=== PATIENT | female | born 1980 | race Caucasian/White ===

== ENCOUNTER 2019-11-16 17:10 | Outpatient (CLI) | payer OTHER, SELFPAY ==
--- NOTE | ~2019-11-16 | XR_ITS ---
EXAMINATION: XR femur LT min 2V DATE: 11/16/2019 17:30 INDICATION: Left hip and upper femoral pain and loss of balance. TECHNIQUE: AP and lateral views of the left femur were obtained on overlapping proximal and distal im ages. COMPARISON: None. FINDINGS: Old healed left femoral diaphyseal fracture which is spanned by an antegrade intramedullary brianna with a pair of distal interlocking screws at the metaphysis and a proximal interlocking screw at the inter trochanteric femur. Alignment is near-anatomic. There is a second partially visualized old healed fra cture deformity at the right inferior pubic ramus. No acute fractures identified. Left hip and knee j oint spaces appear normal on nonweightbearing imaging. Soft tissues are unremarkable. No left knee trang int effusion. IMPRESSION: 1. Old healed internally fixed left femoral distal diaphyseal fracture in near-anatomic alignment. No acute osseous abnormality. 2. Partially visualized old healed right inferior pubic ramus fracture deformity. Reviewed, dictated and finalized at location A. IMPRESSION: 1. Old healed internally fixed left femoral distal diaphyseal fracture in near- anatomic alignment. No acute osseous abnormality. 2. Partially visualized old healed right inferior pubic ramus fracture vanessa stoner
== END 2019-11-16 17:11 | disposition home or self-care (01) ==
PROVIDERS: PCP Internal Medicine; Visit Provider Internal Medicine
DX: M79.605 Pain in left leg (principal)
CPT/HCPCS: 73552

== ENCOUNTER 2019-12-18 20:14 | Emergency (ER) | payer OTHER, SELFPAY ==
--- NOTE | ~2019-12-18 | CT_ITS ---
EXAMINATION: CT abdomen pelvis w con DATE: 12/18/2019 22:12 INDICATION: Left upper quadrant abdominal pain. TECHNIQUE: Computed tomography (CT) of the abdomen and pelvis was performed with 100 mL Omnipaque 350 intravenous contrast. Automated exposure control and iterative reconstruction technique were employe d. The dose-length product was 350.51 mGy-cm. COMPARISON: None. FINDINGS: The visualized portions of the lung bases are clear without pneumonia or pleural effusion. The heart size is normal. No pericardial effusion. The liver is normal. There are changes of cholecys tectomy. The spleen, pancreas, adrenal glands, and kidneys are normal. There are no dilated loops of bowel. The appendix is not visualized. There are no pathologically enlarged lymph nodes. There is a s mall umbilical hernia containing fat. There is no free intraperitoneal fluid. There are old healed fr actures of right superior and inferior pubic rami. There is internal fixation of proximal left femur. IMPRESSION: 1. Small umbilical hernia containing fat. Reviewed, dictated and finalized at location A.
--- NOTE | ~2019-12-18 | XR_ITS ---
EXAMINATION: XR chest 1V portable DATE: 12/18/2019 22:13 INDICATION: Abdominal pain. TECHNIQUE: A single frontal view of the chest was obtained. COMPARISON: CT abdomen and pelvis 12/18/2019 FINDINGS: There is mild atelectasis in left lower lung zone. No pleural effusion or pneumothorax. The heart size is normal. Surgical clips in the right upper quadrant are likely from cholecystectomy. IMPRESSION: 1. Mild atelectasis in left lower lung zone. Reviewed, dictated and finalized at location A.
[2019-12-18 20:20] VITALS: BP 115/72; PULSE 96; RESP 14; TEMP 36.9; O2SAT 100
--- NOTE | 2019-12-18 20:57 | ED.ABDPAIN ---
HPI - Abdominal Pain General Chief Complaint: Abdominal Pain Stated Complaint: L abd pain Source: patient Mode of arrival: ambulatory Limitations: no limitations History of Present Illness HPI narrative: 39-year-old female complains of epigastric and left-sided abdominal pain, onset 7 days ago. Pain has been getting worse today. It is sharp and intense, lasting for a few seconds, recurs every few minutes. Brought on and made worse by walking; eating does not affect it. She has had loose but formed stools without blood or mucus. She denies dysuria. Pain is sometimes associated with back pain which is difficult for to localize. She had pancreatitis in December of 2018 associated with hypotension. She was admitted to an ICU bed for 6 days. She was prompted to come in becauase of concerns she would end up as sick as she was gefore. Related Data Home Medications Medication Instructions Recorded Confirmed citalopram 10 mg PO DAILY 12/18/19 12/18/19 clonazepam 0.5 mg PO BID 12/18/19 12/18/19 Allergies Allergy/AdvReac Type Severity Reaction Status Date / Time baclofen Allergy Severe Anaphylactic Verified 04/06/18 11:08 Shock cephalexin Allergy Intermediate Verified 07/03/16 12:48 Penicillins Allergy Intermediate Verified 07/03/16 12:48 Review of Systems Constitutional: Constitutional: Denies chills and Denies fever(s) ENT: Denies sore throat Cardiovascular: Cardiovascular: Denies chest pain Respiratory: Respiratory: Denies dyspnea Gastrointestinal: Gastrointestinal: Reports no additional gastrointestinal complaints Genitourinary: Genitourinary: Denies hematuria and Denies dysuria Musculoskeletal: Musculoskeletal: Reports back pain Integumentary/Breasts: Skin/Breast: Denies rash Neurologic: Reports headache(s) Hematologic/Lymphatic: Hematologic/Lymphatic: Denies easy bleeding PMFSH Past Medical History Medical History (Updated 12/19/19 @ 00:00 by Background Daemon) Anxiety Pancreatitis Family History Family History (Updated 07/03/16 @ 00:00 by CONVUSER A) Father Acute myocardial infarction Social History Social History (Updated 12/18/19 @ 21:01 by Mayco Smith MD) Years smoked: 22 Smoking status: Never smoker Alcohol intake: never Substance use: never Additional living arrangements comments: lives with and dog. Occupation/Education: unemployed Exam Const: Orientation/consciousness: patient oriented x3 HENMT: Mouth: Yes Normal oral and palatal mucosa present Eyes: EOM: EOMs intact bilaterally Neck: Neck: no lymphadenopathy Chest: Chest palpation & inspection: normal inspection of the chest Resp: Effort & Inspection: normal respiratory effort Auscultation: clear to auscultation bilaterally Cardio: Rate: regular rate Rhythm: regular rhythm GI: GI Palp: Yes Soft to palpation and No Palpable mass present Other: tender epigastrium and left side of abdomen Back/Spine/Pelvis: Back: no CVA tenderness Skin: General skin exam: normal color Neuro: General: patient oriented x3 Extrem: General: normal to inspection and no pedal edema Psych: Mental Status: mental status grossly normal Course Vital Signs Vital signs: Vital Signs Temperature 36.9 C 12/18/19 20:20 Pulse Rate 96 12/18/19 20:20 Respiratory Rate 14 12/18/19 20:20 Blood Pressure 115/72 12/18/19 20:20 Pulse Oximetry 100 12/18/19 20:20 Temperature 36.9 C 12/18/19 20:20 Pulse Rate 76 12/18/19 23:51 Respiratory Rate 12 12/18/19 23:51 Blood Pressure 94/59 L 12/18/19 23:51 Pulse Oximetry 100 12/18/19 23:51 MDM - Abdominal Pain MDM Narrative Medical decision making narrative: Pain is epigastric and left side of abdomen. NO evidence of pancreatitis, kidney stones or pathologies identifiable by CT abdomen/pelvis and chest X ray. UA showed blood but otherwise normal sediment. NO evidence of sepsis or metabolic acidosis (normal carbon dioxide
[2019-12-18] MEDS: LACTATED RINGERS 1,000 ML 500 ML IV CONT (21:18)
[2019-12-18] MEDS: ONDANSETRON INJ 4 MG/2 ML VIAL IV PUSH (21:18)
[2019-12-18] MEDS: MORPHINE SULFATE 4 MG/ML INJ IV PUSH (21:18)
[2019-12-18 21:28] LABS: Basophils Absolute Auto 0.04 K/mm3 (0.00-0.10); Basophils Percent Auto 0.6 % (0.0-1.0); Hematocrit 42.3 % (35.0-49.0); Hemoglobin 13.9 g/dL (12.0-15.0); Immature Granulocyte Absolute 0.01 K/mm3 (0.00-0.00); Immature Granulocyte Percent A 0.2 % (0.0-0.0); Lymphocytes Absolute Auto 2.59 K/mm3 (1.10-4.50); Lymphocytes Percent Auto 39.1 % (18.0-42.0); Mean Corpuscular HGB Conc 32.9 g/dL (32.0-36.0); Mean Corpuscular Hemoglobin 31.8 pg (27.0-31.0); Mean Corpuscular Volume 96.8 fL (78.0-102.0); Mean Platelet Volume 9.5 fl (9.2-11.8); Monocytes Absolute Auto 0.32 K/mm3 (0.10-0.90); Monocytes Percent Auto 4.8 % (2.0-11.0); Neutrophils Absolute Auto 3.5 K/mm3 (1.7-7.2); Neutrophils Percent Auto 52.3 % (50.0-70.0); Platelet Count Result 314 K/mm3 (150-420); Red Blood Count 4.37 M/mm3 (4.20-5.40); White Blood Count 6.6 K/mm3 (4.8-10.8)
[2019-12-18 21:43] LABS: Alanine Aminotransferase 24 U/L (14-59); Albumin Level 3.6 g/dL (3.4-5.0); Alkaline Phosphatase 82 U/L (46-116); Anion Gap 10.3 mmol/L (7-16); Aspartate Amino Transferase 24 U/L (15-37); Bilirubin,Total 0.1 mg/dL (0.00-1.00); Blood Urea Nitrogen 16 mg/dL (7-18); Calcium 8.2 mg/dL (8.5-10.1); Carbon Dioxide 24 mmol/L (21-32); Chloride 105 mmol/L (98-108); Estimated CRCL calculation 54 ml/min; Estimated Glomerular Filt Rate 49; Glucose 89 mg/dL (70-99); Osmolality Calculated 282 mOsm/kg (285-295); Potassium 3.3 mmol/L (3.5-5.1); Sodium 136 mmol/L (136-145)
[2019-12-18 21:46] LABS: Lipase 109 U/L (73-393)
[2019-12-18 21:49] LABS: Lactic Acid 2.7 mmol/L (0.4-2.0)
[2019-12-18 21:54] LABS: Appearance Urine Sl Cloudy (Clear); Bilirubin Urine Negative (Negative); Color Urine Yellow (Yellow); Glucose Urine UA Negative (Negative); Ketones Urine Negative (Negative); Leukocyte Esterase Ur Negative (Negative); Nitrate Urine Negative (Negative); Protein Urine Negative (Negative); Specific Grav Ur >= 1.030 (1.010-1.020); Urobilinogen Urine 0.2 mg/dL (0.2-1.0); pH Urine 5.5 (5.0-8.0)
[2019-12-18 22:10] LABS: Add Urine Microscopic? YES; Bacteria Urine 1+ /hpf; Blood Urine Trace-Intact (Negative); Mucus Urine Moderate /lpf; Squamous Epithelial Cell Urine Few /hpf (Few); WBC Urine None seen /hpf (0-3)
[2019-12-18 23:51] VITALS: BP 94/59; PULSE 76; RESP 12; O2SAT 100
[2019-12-18] MEDS: metroNIDAZOLE 250 MG TABLET PO (23:51)
[2019-12-18] MEDS: CIPROFLOXACIN 500 MG TAB PO (23:53)
== END 2019-12-18 23:54 | disposition home or self-care (01) ==
PROVIDERS: Emergency Provider Family Medicine; PCP Internal Medicine
DX: K52.9 Noninfective gastroenteritis and colitis, unspecified (principal); R10.9 Unspecified abdominal pain
CPT/HCPCS: 36415; 71045; 74177; 80053; 81001; 83605; 83690; 85025; 96361; 96374; 96375; 99283; 99284; A9270; J2270; J2405; J7120; Q9965

== ENCOUNTER 2019-12-30 15:17 | Emergency (ER) | payer OTHER, SELFPAY ==
--- NOTE | ~2019-12-30 | CT_ITS ---
EXAMINATION: CT abdomen pelvis w con DATE: 12/30/2019 18:31 INDICATION: Left-sided flank pain. Bloody diarrhea. TECHNIQUE: Computed tomography (CT) of the abdomen and pelvis was performed with 100 cc Omnipaque 350 intravenous contrast. The dose-length product was 343.34 mGy-cm. Automated exposure control and iter ative reconstruction technique were employed. COMPARISON: CT dated 12/18/2019 FINDINGS: Lung bases unremarkable. Heart size normal. No significant pleural or pericardial effusion. The liver, spleen, pancreas, adrenal glands are unremarkable. There are nonobstructing bilateral lexx l stones. There are cholecystectomy clips. Nonobstructive bowel gas pattern. There is thickening of t he distal transverse and descending colon, compatible with colitis, most likely infectious/inflammato ry. Retroverted uterus. Moderate lumbar spondylosis. There is an intramedullary brianna in the left femur . IMPRESSION: 1. Thickening of the distal transverse and descending colon, compatible with colitis, most likely inf ectious/inflammatory. 2: Nonobstructing bilateral nephrolithiasis. Reviewed, dictated and finalized at location A. IMPRESSION: 1. Thickening of the distal transverse and descending colon, compatible with co litis, most likely infectious/inflammatory. 2: Nonobstructing bilateral nephrolithiasis.
--- NOTE | ~2019-12-30 | XR_ITS ---
EXAMINATION: XR chest 2V 12/30/2019 18:39 INDICATION: Smoker. Chest pain. PROCEDURE: 2 view chest COMPARISON: 12/18/2019 FINDINGS: The lungs are clear. The cardiomediastinal silhouette is within normal limits. There are no pleural effusions. There is no pneumothorax suspected. IMPRESSION: 1: NO ACUTE CARDIOPULMONARY DISEASE. Reviewed, dictated and finalized at location A.
--- NOTE | 2019-12-30 15:21 | ED.GENADULT ---
HPI - General Adult General Chief complaint: Abdominal Pain Stated complaint: abd pain, rectal bleeding Time Seen by Provider: 12/30/19 15:21 Source: patient Mode of arrival: ambulatory Limitations: no limitations History of Present Illness HPI narrative: 39-year-old female [facility] complaints of left sided abdominal pain and blood in the stool. Patient states she was seen about 10 days ago at [facility] with similar complaints and states that she was told that she had an enlarged colon and discharged home with antibiotics. Patient states that she finished the antibiotics but continues to have left sided abdominal pain. Patient does have history of pancreatitis but denies any alcohol use. Patient states that she does smoke and vape. Denies any drug use. Patient denies any chest pain, shortness of breath, lightheadedness or dizziness. Patient states that she has been having diarrhea and noticed some black tarry stool last night. Patient states this is continued into today. Patient states that she did call her primary doctor and he advised her to come to the ER for further testing. Related Data Home Medications Medication Instructions Recorded Confirmed citalopram 10 mg PO DAILY 12/18/19 12/18/19 clonazepam 0.5 mg PO BID 12/18/19 12/18/19 Allergies Allergy/AdvReac Type Severity Reaction Status Date / Time baclofen Allergy Severe Anaphylactic Verified 04/06/18 11:08 Shock cephalexin Allergy Intermediate Verified 07/03/16 12:48 Penicillins Allergy Intermediate Verified 07/03/16 12:48 Review of Systems Review of Systems: Narrative: CONSTITUTIONAL: Denies fever, chills, or sweats. EYES: Denies visual changes, redness, or discharge. ENT: Denies rhinorrhea, congestion, sore throat, or otalgia. CARDIOVASCULAR: Denies chest pain, palpitations, or edema. RESPIRATORY: Denies cough or dyspnea. GASTROINTESTINAL: Positive left-sided abdominal pain, denies nausea, vomiting, positive diarrhea with black tarry stools. GENITOURINARY: Denies dysuria or hematuria. SKIN: Denies rash or itching. MUSCULOSKELETAL: Denies back pain, joint pain, or myalgia. NEUROLOGIC: Denies headache, numbness, or weakness. PSYCHIATRIC: Denies anxiety or depression. [facility] Past Medical History Medical History Anxiety Pancreatitis Family History Family History Father Acute myocardial infarction Social History Social History Years smoked: 22 Smoking status: Never smoker Alcohol intake: never Substance use: never Additional living arrangements comments: lives with and dog. Gender identity (if verbalized by the patient): Female Comments At the time of my signature I agree with nursing past medical history, surgical, social, and family history. There is no relevant family history pertinent to the presenting complaint. Exam Narrative: Exam Narrative: GENERAL: Well-appearing, well-nourished, and in no acute distress. HEAD: Normocephalic, atraumatic. EYES: PERRLA and EOMI. ENT: Nares clear, no rhinorrhea or epistaxis. Mucous membranes moist. NECK: Supple. No lymphadenopathy CHEST: Clear to auscultation. No respiratory distress. HEART: Regular rate and rhythm. No murmur heard. Normal peripheral pulses. ABDOMEN: Soft, flat, nondistended. No guarding, rebound tenderness, or rigid. Positive left upper abdominal pain on palpation. No pulsatilla masses. Hyperactive bowel sounds present in all four quadrants. No organomegaly. Negative Damon?s sign. No periumbicial tenderness. No Supra public tenderness or distension. Good femoral pulses bilaterally. No hernia noted. No scars or surface trauma. Stool guaiac performed and was negative at bedside. EXTREMITIES: Normal range of motion. No edema. SKIN: Warm, dry, no rash. NEURO: No focal defici
[2019-12-30 15:54] VITALS: BP 114/84; PULSE 81; RESP 17; TEMP 36.8; O2SAT 98
[2019-12-30] MEDS: SODIUM CHLORIDE 0.9% IV 1,000 ML 999 ML IV CONT (16:00)
--- NOTE | 2019-12-30 16:00 | PC.NURSE ---
Patient was notified that urine is needed. Patient unable to provide urine at this time. Fluids provided and patient will attempt after fluids infused.
[2019-12-30 16:03] VITALS: BP 100/85; PULSE 82; RESP 16; TEMP 36.8; O2SAT 100
[2019-12-30 16:04] LABS: Basophils Percent Auto 0.6 % (0.2-1.2); Eosinophils Absolute Auto 0.1 K/mm3 (0-0.3); Eosinophils Percent Auto 1.5 % (0-4.4); Hematocrit 44.9 % (37.0-47.0); Hemoglobin 15.3 g/dL (12.0-15.0); Immature Granulocyte Absolute 0.01 K/mm3 (0.00-0.031); Immature Granulocyte Percent A 0.2 % (0-0.5); Lymphocytes Absolute Auto 2.08 K/mm3 (0.9-3.2); Lymphocytes Percent Auto 31.7 % (18.3-44.2); Mean Corpuscular HGB Conc 34.1 g/dl (32-36); Mean Corpuscular Hemoglobin 31.9 pg (26-34); Mean Corpuscular Volume 93.5 fl (80-100); Mean Platelet Volume 9.6 fl (7.4-10.4); Monocytes Absolute Auto 0.4 K/mm3 (0.1-0.6); Monocytes Percent Auto 5.5 % (2.6-8.5); Neutrophils Percent Auto 60.5 % (45.5-73.1); Platelet Count Result 375 k/mm3 (150-375); Red Cell Distribution Width 12.4 % (11.5-14.5); White Blood Count 6.6 K/mm3 (4.5-10.0)
[2019-12-30 16:14] LABS: Lactic Acid Reflex 0.9 mmol/L (0.7-2.1)
[2019-12-30 16:15] LABS: Alanine Aminotransferase 41 U/L (4-35); Albumin Level 5.1 g/dL (3.5-5.1); Alkaline Phosphatase 105 U/L (38-126); Anion Gap 12.6 mmol/L (7-16); Aspartate Amino Transferase 40 U/L (14-36); Bilirubin,Total 0.6 mg/dL (0.2-1.3); Blood Urea Nitrogen 17 mg/dL (7-17); Calcium 9.7 mg/dL (8.4-10.2); Carbon Dioxide 29 mmol/L (22-30); Chloride 100 mmol/L (98-107); Estimated CRCL calculation 71 ml/min; Estimated Glomerular Filt Rate > 60; Glucose 92 mg/dL (65-105); Lipase 55 U/L (23-300); Potassium 3.6 mmol/L (3.4-5.0); Sodium 138 mmol/L (137-145)
[2019-12-30 16:35] LABS: Prothrombin Time 12.8 Seconds (11.1-14.7)
[2019-12-30 16:36] LABS: Partial Thromboplastin Time 25.7 SECONDS (22.3-36.8)
[2019-12-30 17:00] VITALS: BP 110/82; PULSE 99; RESP 22; O2SAT 100
--- NOTE | 2019-12-30 17:04 | PC.NURSE ---
Patient is not able to provide urine at this time. she will not allow straight catheter at this time.
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
[2019-12-30 17:49] LABS: Add Urine Microscopic? YES; Appearance Urine Clear (Clear); Bacteria Urine Trace /hpf; Bilirubin Urine Negative (Negative); Blood Urine 3+ (Negative); Color Urine Yellow (Yellow); Glucose Urine UA Negative (Negative); Ketones Urine Negative (Negative); Leukocyte Esterase Ur Negative LEU/UL (Negative); Mucus Urine Heavy /lpf; Nitrate Urine Negative (Negative); Protein Urine 1+ mg/dL (Negative); Specific Grav Ur 1.028 (1.001-1.035); Squamous Epithelial Cell Urine Many /hpf (Few); Urobilinogen Urine Negative mg/dL (<2.0)
[2019-12-30 18:00] VITALS: BP 119/79; PULSE 89; RESP 18; O2SAT 99
[2019-12-30 18:02] LABS: Ethanol < 10 mg/dL (<10)
[2019-12-30 18:13] LABS: Barbiturate Screen Urine Negative (Negative); Benzodiazepines Screen Urine Negative (Negative)
[2019-12-30 18:25] LABS: Cannabinoid Screen Urine Negative (Negative); Cocaine Screen Urine Negative (Negative); Methadone Screen Urine Negative (Negative); Opiate Screen Urine Negative (Negative); Phencyclidine Screen Urine Negative (Negative)
--- NOTE | 2019-12-30 18:36 | PC.NURSE ---
Patient has had CT and is in xray at this time. Xray called because patient requests information about why she is having a chest xray. Information from [facility] was relayed to the patient at this time as to her reasoning for the procedure.
[2019-12-30 18:39] LABS: Amphetamine Screen Urine Positive (Negative)
[2019-12-30 19:15] VITALS: BP 109/86; PULSE 89; RESP 21; TEMP 36.7; O2SAT 98
[2019-12-30] MEDS: MOXIFLOXACIN HCL 400 MG TABLET PO (19:18)
--- NOTE | 2019-12-30 19:20 | PC.NURSE ---
Medication provided and meal provided per ok of the ED COMPUTER AIDED DESIGN DESIGNER. Patient was also provided with a stool sample container at this time. The ED COMPUTER AIDED DESIGN DESIGNER spoke with the patient and told her that we needed sample prior to her leaving. These instructions were reinforced to the patient at this time. Patient verbalized understanding and reported she would provide sample after eating.
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
== END 2019-12-30 19:59 | disposition left against medical advice (07) ==
PROVIDERS: Emergency Provider Nurse Practitioner Family; PCP Internal Medicine
DX: A09 Infectious gastroenteritis and colitis, unspecified (principal); F41.9 Anxiety disorder, unspecified
CPT/HCPCS: 36415; 71046; 74177; 80053; 80307; 81001; 81025; 83605; 83690; 85025; 85610; 85730; 96360; 96361; 99284; A9270; J7030; Q9967